=== PATIENT | female | born 1980 | race Caucasian/White ===

== ENCOUNTER 2017-06-21 20:58 | Emergency (ER) | payer MEDICAID, OTHER ==
[~2017-06-21] VITALS: Ht 152.4 cm; Wt 90.7 kg
[2017-06-21 21:09] VITALS: BP_SYST 158
[2017-06-21] MEDS ORDERED: ACETAMINOPHEN/CODEINE 300 MG-30 MG TABLET PO ONE (23:15)
[2017-06-21 23:20] VITALS: BP_SYST 142
== END 2017-06-21 23:20 | disposition home or self-care (01) ==
LOC: SED 20:58
DX: K04.7 Periapical abscess without sinus (principal); I10 Essential (primary) hypertension
CPT/HCPCS: 99283

== ENCOUNTER 2018-08-09 09:52 | Emergency (ER) | payer MEDICAID ==
[~2018-08-09] VITALS: Ht 154.9 cm; Wt 90.7 kg
[2018-08-09 09:57] VITALS: BP_SYST 148
== END 2018-08-09 10:23 | disposition home or self-care (01) ==
LOC: SED 09:52
DX: K04.7 Periapical abscess without sinus (principal); F17.210 Nicotine dependence, cigarettes, uncomplicated
CPT/HCPCS: 99283

== ENCOUNTER 2019-11-26 | Emergency (ER) | payer SELFPAY ==
[~2019-11-26] VITALS: Ht 152.4 cm; Wt 86.2 kg
[2019-11-26 00:05] VITALS: BP_SYST 133
[2019-11-26] MEDS ORDERED: AMOXICILLIN/CLAVULANATE POTASSIUM 875 MG TABLET PO ONE (00:30)
[2019-11-26] MEDS ORDERED: HYDROcodone/ACETAMIN 5-325 MG TAB (NORCO/ VICODIN) PO ONE (00:30)
[2019-11-26 00:47] VITALS: BP_SYST 133
== END 2019-11-26 00:47 | disposition home or self-care (01) ==
LOC: SED
DX: K04.7 Periapical abscess without sinus (principal); K05.10 Chronic gingivitis, plaque induced; G43.909 Migraine, unspecified, not intractable, without status migrainosus; I10 Essential (primary) hypertension; F17.200 Nicotine dependence, unspecified, uncomplicated; F12.90 Cannabis use, unspecified, uncomplicated
CPT/HCPCS: 99283